=== PATIENT | female | born 1970 | race Hispanic/Latino ===

== ENCOUNTER 2023-06-01 07:41 | Inpatient (IN) | payer OTHER ==
[2023-05-27 16:01] LABS: BASOPHILS % 0.4 % (0.0-1.0); EOSINOPHILS # (AUTO) 0.3 (0.0-0.4); EOSINOPHILS % 4.3 % (0.0-6.0); HEMOGLOBIN 12.3 g/dL (12.0-16.0); LYMPHOCYTES # (AUTO) 2.4 (1.0-3.2); LYMPHOCYTES % 30.4 % (18.0-39.1); MEAN CORPUSCULAR HEMOGLOBIN 29.4 pg (28-32); MEAN CORPUSCULAR HGB CONC 34.2 g/dL (31-35); MEAN CORPUSCULAR VOLUME 85.9 fL (81-99); MONOCYTES # (AUTO) 0.3 (0.2-0.8); MONOCYTES % 4.3 % (4.4-11.3); NEUTROPHILS # (AUTO) 4.7 (2.1-6.9); NEUTROPHILS % 60.3 % (38.7-80.0); PLATELET COUNT 187 x10e3/uL (140-360); RED BLOOD COUNT 4.19 x10e6/uL (3.6-5.1); WHITE BLOOD COUNT 7.85 x10e3/uL (4.8-10.8)
[2023-05-27 16:19] LABS: ANION GAP 12.9 mmol/L (8-16); CALCIUM 9.5 mg/dL (8.4-10.2); CREATININE, SERUM 0.8 mg/dL (0.57-1.11); POTASSIUM 3.9 mmol/L (3.5-5.1)
[~2023-06-01] VITALS: Ht 152.4 cm; Wt 52.6 kg
[~2023-06-01 07:41] MED LIST: OMEPRAZOLE20 M1 PO; ROPIVACAINE 246.25 MG, EPINEPHRINE HCL 1:1000 1ML 0.5 MG, CLONIDINE HCL 0.08 MG, KETORO... INJ ONE; TYLENOL ARTHRITIS PO
[2023-06-01] MEDS ORDERED: EPINEPHRINE HCL 1:1000 1ML 1 MG/ML AMP ONE (09:40)
[2023-06-01] MEDS ORDERED: BUPIVACAINE 0.25% 30ML SDV ONE (09:40)
[2023-06-01] MEDS ORDERED: LACTATED RINGER'S 1,000 ML ONE (10:16)
[2023-06-01] MEDS ORDERED: LIDOCAINE HCL 2% LOCAL INJ 5 ML SDV VIAL INJ ONE (12:08)
[2023-06-01] MEDS ORDERED: PROPOFOL IV EMULSION 10 MG/ML 20 ML VIAL ONE (12:08)
[2023-06-01] MEDS ORDERED: SEVOFLURANE INHAL SOLN 250 ML PEN BTL ONE (12:08)
[2023-06-01] MEDS ORDERED: ROCURONIUM BROMIDE 10 MG/ML 5ML VIAL IV ONE (12:08)
[2023-06-01] MEDS ORDERED: ONDANSETRON HCL INJ 2MG/ML 2ML 2 MG/ML VIAL ONE (12:08)
[2023-06-01] MEDS ORDERED: DEXAMETHASONE SOD PHOS INJ 4 MG/ML SDV ONE (12:08)
[2023-06-01] MEDS ORDERED: SUCCINYLCHOLINE CHLORIDE 20 MG/ML 10ML VIAL ONE (12:08)
[2023-06-01] MEDS ORDERED: NALOXONE HCL INJ 0.4 MG/ML AMP IV PRN (13:00)
[2023-06-01] MEDS: SODIUM CHLORIDE 0.9% 250ML IRRIG IR SCH ×3 (13:00→19:47)
[2023-06-01] MEDS ORDERED: HYDROMORPHONE 0.2MG/ML-SOD CHL 30ML PCA SYRINGE IV PRN (13:00)
[2023-06-01] MEDS ORDERED: Morphine 10mg syringe 10 MG/ML INJ ONE (13:09)
[2023-06-01] MEDS ORDERED: FENTANYL CITRATE/PF 100MCG/2 ML INJ ONE (13:09)
[2023-06-01 14:05] VITALS: PULSE 65; RESP 14; O2SAT 98
[2023-06-01] MEDS: SODIUM CHLORIDE 0.9% 1000ML 1,000 ML IV SCH ×2 (14:32→23:47)
[2023-06-01 14:36] VITALS: BP 133/75; PULSE 81; RESP 18; TEMP 97.5; O2SAT 100
[2023-06-01 15:48] VITALS: BP 138/75; PULSE 81; RESP 18; TEMP 97.9; O2SAT 100
[2023-06-01] MEDS ORDERED: ACETAMINOPHEN 1000 MG/100 ML IV PRN (17:00)
[2023-06-01] MEDS: ONDANSETRON HCL INJ 2MG/ML 2ML 2 MG/ML VIAL IV PRN ×2 (19:47→23:47)
[2023-06-01 20:00] VITALS: BP 125/77; PULSE 69; RESP 18; TEMP 98; O2SAT 96
[2023-06-01 20:15] VITALS: PULSE 71; RESP 16; O2SAT 98
[2023-06-02] VITALS (13 sets, daily range): BP systolic 109–126; BP diastolic 65–77; PULSE 69–85; RESP 17–21; TEMP 97.4–98.6; O2SAT 96–100
[2023-06-02] MEDS: SODIUM CHLORIDE 0.9% 250ML IRRIG IR SCH ×6 (01:00→20:00)
[2023-06-02] MEDS: ONDANSETRON HCL INJ 2MG/ML 2ML 2 MG/ML VIAL IV PRN ×3 (03:28→20:05)
[2023-06-02 05:02] LABS: BASOPHILS % 0.1 % (0.0-1.0); HEMATOCRIT 30.6 % (34.2-44.1); HEMOGLOBIN 10.4 g/dL (12.0-16.0); LYMPHOCYTES # (AUTO) 1.4 (1.0-3.2); LYMPHOCYTES % 13.8 % (18.0-39.1); MEAN CORPUSCULAR HEMOGLOBIN 28.7 pg (28-32); MEAN CORPUSCULAR VOLUME 84.5 fL (81-99); MONOCYTES # (AUTO) 0.9 (0.2-0.8); MONOCYTES % 8.3 % (4.4-11.3); NEUTROPHILS % 77.5 % (38.7-80.0); PLATELET COUNT 152 x10e3/uL (140-360); RED BLOOD COUNT 3.62 x10e6/uL (3.6-5.1); RED CELL DISTRIBUTION WIDTH 12.6 % (11.7-14.4); WHITE BLOOD COUNT 10.29 x10e3/uL (4.8-10.8)
[2023-06-02 05:25] LABS: ANION GAP 10.3 mmol/L (8-16); CALCIUM 8.7 mg/dL (8.4-10.2); CREATININE, SERUM 0.69 mg/dL (0.57-1.11); POTASSIUM 4.3 mmol/L (3.5-5.1)
[2023-06-02] MEDS: SODIUM CHLORIDE 0.9% 1000ML 1,000 ML IV SCH ×2 (08:59→16:50)
[2023-06-02] MEDS: Morphine 4mg INJECTION 4 MG/ML INJ IV PRN (16:43)
[2023-06-02] MEDS: ACETAMINOPHEN 1000 MG/100 ML IV PRN (19:59)
[2023-06-03] VITALS (11 sets, daily range): BP systolic 114–126; BP diastolic 59–78; PULSE 63–87; RESP 16–18; TEMP 98.1–99.2; O2SAT 96–100
[2023-06-03] MEDS: ONDANSETRON HCL INJ 2MG/ML 2ML 2 MG/ML VIAL IV PRN ×2 (01:39→23:44)
[2023-06-03] MEDS: SODIUM CHLORIDE 0.9% 250ML IRRIG IR SCH ×5 (01:39→16:21)
[2023-06-03] MEDS: Morphine 4mg INJECTION 4 MG/ML INJ IV PRN ×3 (01:40→23:44)
[2023-06-03] MEDS: ACETAMINOPHEN 1000 MG/100 ML IV PRN ×2 (03:51→14:07)
[2023-06-03] MEDS: SODIUM CHLORIDE 0.9% 1000ML 1,000 ML IV SCH ×2 (03:52→14:12)
[2023-06-03 05:25] LABS: BASOPHILS % 0.3 % (0.0-1.0); EOSINOPHILS % 0.4 % (0.0-6.0); HEMATOCRIT 32.7 % (34.2-44.1); HEMOGLOBIN 10.9 g/dL (12.0-16.0); LYMPHOCYTES # (AUTO) 1.8 (1.0-3.2); LYMPHOCYTES % 18.2 % (18.0-39.1); MEAN CORPUSCULAR HEMOGLOBIN 28.8 pg (28-32); MEAN CORPUSCULAR HGB CONC 33.3 g/dL (31-35); MEAN CORPUSCULAR VOLUME 86.3 fL (81-99); MONOCYTES # (AUTO) 0.7 (0.2-0.8); NEUTROPHILS # (AUTO) 7.4 (2.1-6.9); NEUTROPHILS % 73.8 % (38.7-80.0); PLATELET COUNT 158 x10e3/uL (140-360); RED BLOOD COUNT 3.79 x10e6/uL (3.6-5.1); RED CELL DISTRIBUTION WIDTH 12.7 % (11.7-14.4); WHITE BLOOD COUNT 10.04 x10e3/uL (4.8-10.8)
[2023-06-03 05:54] LABS: ANION GAP 14.1 mmol/L (8-16); CALCIUM 8.9 mg/dL (8.4-10.2); CREATININE, SERUM 0.71 mg/dL (0.57-1.11); POTASSIUM 4.1 mmol/L (3.5-5.1)
[2023-06-03] MEDS ORDERED: BISACODYL 10 MG SUPP PR ONE (10:15)
[2023-06-03] MEDS: KETOROLAC TROMETHAMINE 30 MG/ML VIAL IM PRN (18:27)
[2023-06-03] MEDS: BISACODYL 10 MG SUPP PR SCH (22:03)
[2023-06-04] VITALS (9 sets, daily range): BP systolic 110–124; BP diastolic 62–85; PULSE 58–85; RESP 16–18; TEMP 98–98.6; O2SAT 95–100
[2023-06-04] MEDS: PROMETHAZINE 12.5MG/ NACL 0.9% 12.5 MG/50 ML BAG IV PRN ×2 (02:44→22:42)
[2023-06-04] MEDS: SODIUM CHLORIDE 0.9% 1000ML 1,000 ML IV SCH ×2 (02:45→13:58)
[2023-06-04 05:48] LABS: BASOPHILS % 0.4 % (0.0-1.0); EOSINOPHILS # (AUTO) 0.2 (0.0-0.4); EOSINOPHILS % 2.8 % (0.0-6.0); HEMATOCRIT 27.9 % (34.2-44.1); HEMOGLOBIN 9.5 g/dL (12.0-16.0); LYMPHOCYTES # (AUTO) 1.6 (1.0-3.2); LYMPHOCYTES % 19.7 % (18.0-39.1); MEAN CORPUSCULAR HGB CONC 34.1 g/dL (31-35); MEAN CORPUSCULAR VOLUME 85.1 fL (81-99); MONOCYTES # (AUTO) 0.7 (0.2-0.8); NEUTROPHILS # (AUTO) 5.6 (2.1-6.9); NEUTROPHILS % 68.7 % (38.7-80.0); PLATELET COUNT 147 x10e3/uL (140-360); RED BLOOD COUNT 3.28 x10e6/uL (3.6-5.1); RED CELL DISTRIBUTION WIDTH 12.3 % (11.7-14.4); WHITE BLOOD COUNT 8.21 x10e3/uL (4.8-10.8)
[2023-06-04 06:13] LABS: ANION GAP 7.8 mmol/L (8-16); CALCIUM 8.5 mg/dL (8.4-10.2); CREATININE, SERUM 0.65 mg/dL (0.57-1.11); POTASSIUM 3.8 mmol/L (3.5-5.1)
[2023-06-04] MEDS: KETOROLAC TROMETHAMINE 30 MG/ML VIAL IM PRN ×2 (07:16→15:10)
[2023-06-04] MEDS: BISACODYL 10 MG SUPP PR SCH (09:24)
[2023-06-04] MEDS: ONDANSETRON HCL INJ 2MG/ML 2ML 2 MG/ML VIAL IV PRN ×2 (16:14→19:56)
[2023-06-04] MEDS: HYDROMORPHONE 1MG/1ML INJ IV PRN ×2 (16:14→19:57)
[2023-06-05] VITALS (9 sets, daily range): BP systolic 108–124; BP diastolic 60–82; PULSE 62–85; RESP 16–18; TEMP 98.2–98.8; O2SAT 96–100
[2023-06-05] MEDS: SODIUM CHLORIDE 0.9% 1000ML 1,000 ML IV SCH ×3 (00:19→19:37)
[2023-06-05] MEDS: PROMETHAZINE 12.5MG/ NACL 0.9% 12.5 MG/50 ML BAG IV PRN ×4 (03:16→21:53)
[2023-06-05] MEDS: HYDROMORPHONE 1MG/1ML INJ IV PRN ×6 (03:17→21:54)
[2023-06-05] MEDS ORDERED: CEPACOL SORE THROAT LOZENGES PO PRN (11:15)
[2023-06-05] MEDS: HYDROCODONE/APAP 7.5MG-325MG 1 EA TAB PO PRN (19:37)
[2023-06-06 00:19] VITALS: BP 102/56; PULSE 77; RESP 18; TEMP 98; O2SAT 97
[2023-06-06] MEDS: PROMETHAZINE 12.5MG/ NACL 0.9% 12.5 MG/50 ML BAG IV PRN ×2 (02:29→12:51)
[2023-06-06] MEDS: HYDROMORPHONE 1MG/1ML INJ IV PRN ×5 (02:29→16:00)
[2023-06-06 04:00] VITALS: BP 105/70; PULSE 73; RESP 17; TEMP 98.2; O2SAT 99
[2023-06-06 07:07] VITALS: PULSE 87; RESP 16; O2SAT 94
[2023-06-06] MEDS: SODIUM CHLORIDE 0.9% 1000ML 1,000 ML IV SCH ×2 (07:39→14:57)
[2023-06-06 08:00] VITALS: BP 127/80; PULSE 70; RESP 19; TEMP 98.4; O2SAT 100
[2023-06-06] MEDS: HYDROCODONE/APAP 7.5MG-325MG 1 EA TAB PO PRN ×2 (08:20→13:44)
[2023-06-06] MEDS: ONDANSETRON HCL INJ 2MG/ML 2ML 2 MG/ML VIAL IV PRN (09:46)
[2023-06-06 12:05] VITALS: BP 113/60; PULSE 63; RESP 16; TEMP 98.3; O2SAT 99
[2023-06-06 17:00] VITALS: BP 106/65
[2023-06-06] MEDS ORDERED: PANTOPRAZOLE SOD 40 MG TABEC PO SCH (21:00)
== END 2023-06-06 17:58 | disposition home or self-care (01) | DRG 328 ==
LOC: OR 07:41 → PACU V 12:51 → MED/SURG 13:40
PROVIDERS: ADMIT Surgery; ATTEND Surgery
PROC: 0DS60ZZ Reposition Stomach, Open Approach (ICD-10-PCS; 2023-06-01)
PROC: 0BJT4ZZ Inspection of Diaphragm, Percutaneous Endoscopic Approach (ICD-10-PCS; 2023-06-01)
PROC: 0BQT0ZZ Repair Diaphragm, Open Approach (ICD-10-PCS; principal; 2023-06-01 10:15)
PROC: 0DQ40ZZ Repair Esophagogastric Junction, Open Approach (ICD-10-PCS; 2023-06-01 10:15)
DX: K44.0 Diaphragmatic hernia with obstruction, without gangrene (principal); K66.0 Peritoneal adhesions (postprocedural) (postinfection); R13.19 Other dysphagia
CPT/HCPCS: 36415; 80048; 85025; 93005; 94799; J0171; J0330; J1100; J1170; J1885; J2001; J2270; J2405; J2550; J2795; J7030

== ENCOUNTER 2024-08-09 15:13 | Emergency (ER) | payer OTHER ==
[~2024-08-09] VITALS: Ht 167.6 cm; Wt 43.1 kg
[~2024-08-09 15:13] MED LIST changes: +AUGMENTIN 500-1 EACH PO; +CEFDINIR300 MG PO; +DICYCLOMINE HCL20 MG PO; +ONDANSETRON ODT4 MG SL; +PANTOPRAZOLE SO40 MG PO; -ROPIVACAINE 246.25 MG, EPINEPHRINE HCL 1:1000 1ML 0.5 MG, CLONIDINE HCL 0.08 MG, KETORO... INJ ONE
[2024-08-09 15:15] VITALS: TEMP 98
[2024-08-09 16:11] LABS: BASOPHILS % 0.4 % (0.0-1.0); EOSINOPHILS # (AUTO) 0.3 (0.0-0.4); EOSINOPHILS % 5.3 % (0.0-6.0); HEMATOCRIT 37.6 % (34.2-44.1); LYMPHOCYTES % 39.4 % (18.0-39.1); MEAN CORPUSCULAR HEMOGLOBIN 29.1 pg (28-32); MEAN CORPUSCULAR HGB CONC 31.9 g/dL (31-35); MONOCYTES # (AUTO) 0.4 (0.2-0.8); NEUTROPHILS # (AUTO) 2.5 (2.1-6.9); NEUTROPHILS % 47.7 % (38.7-80.0); PLATELET COUNT 190 x10e3/uL (140-360); RED BLOOD COUNT 4.13 x10e6/uL (3.6-5.1); RED CELL DISTRIBUTION WIDTH 12.9 % (11.7-14.4); WHITE BLOOD COUNT 5.13 x10e3/uL (4.8-10.8)
[2024-08-09 16:27] LABS: ALBUMIN 4.1 g/dL (3.5-5.0); ALBUMIN/GLOBULIN RATIO 1.4 (0.8-2.0); CALCIUM 10.1 mg/dL (8.4-10.2); CREATININE, SERUM 0.78 mg/dL (0.57-1.11)
[2024-08-09 16:39] LABS: BILIRUBIN,TOTAL 0.5 mg/dL (0.2-1.2)
[2024-08-09 18:00] VITALS: PULSE 55; RESP 16; O2SAT 100
== END 2024-08-09 18:00 | disposition home or self-care (01) ==
LOC: ER 15:25
DX: R10.13 Epigastric pain (principal); R11.0 Nausea; K21.9 Gastro-esophageal reflux disease without esophagitis; M19.09 Primary osteoarthritis, other specified site; R94.31 Abnormal electrocardiogram [ECG] [EKG]
CPT/HCPCS: 36415; 71046; 80053; 84484; 85025; 93005; 99284

== ENCOUNTER 2025-01-03 18:53 | Emergency (ER) | payer OTHER ==
[~2025-01-03] VITALS: Ht 154.9 cm; Wt 44.0 kg
[2025-01-03 19:30] VITALS: PULSE 78; RESP 18; TEMP 98
[2025-01-03] MEDS ORDERED: MEDROL4 M2 PO (20:42)
[2025-01-03] MEDS: DEXAMETHASONE SOD PHOS 10 MG/1 ML VIAL IM ONE (21:00)
[2025-01-03 21:58] VITALS: BP 128/84; PULSE 84; RESP 18; TEMP 98.6; O2SAT 98
== END 2025-01-03 21:30 | disposition home or self-care (01) ==
LOC: ER 20:42
DX: R68.84 Jaw pain (principal); M26.601 Right temporomandibular joint disorder, unspecified; K21.9 Gastro-esophageal reflux disease without esophagitis; M19.09 Primary osteoarthritis, other specified site
CPT/HCPCS: 99284